=== PATIENT | female | born 1995 | race Caucasian/White ===

== ENCOUNTER 2018-06-16 17:39 | Emergency (ER) | payer OTHER ==
[2018-06-16 17:52] VITALS: BP 134/86; PULSE 86; TEMP 98.1; BMI 23.3
--- NOTE | 2018-06-16 17:53 | PDOC ---
Rapid Medical Evaluation Time Seen by Provider: 06/16/18 17:48 Medical Evaluation: Allergies Allergy/AdvReac Type Severity Reaction Status Date / Time No Known Allergies Allergy Verified 12/30/14 00:28 06/16/18 17:49 I have performed a brief in-person evaluation of this patient. The patient presents with a chief complaint of:headache s/p fall this am at 8am. No dizziness, n/v. No pmhx, not on blood thinners Pertinent physical exam findings:well chace and stable w/ unremarkable I have ordered the following:nothing The patient will proceed to the ED for further evaluation Discharge Disposition - Diagnosis Head injury Qualifiers: Encounter type: initial encounter Qualified Code(s): S09.90XA - Unspecified injury of head, initial encounter - Referrals - Patient Instructions - Post Discharge Activity
--- NOTE | 2018-06-16 18:33 | PDOC ---
History of Present Illness - General History Source: Patient Exam Limitations: No Limitations - History of Present Illness Initial Comments: 06/16/18 18:33 23 yr female with c/o headache after fall hit back of head this am . no LOC felt dizzy after fall. Pt has had continued headache despite taking tylenol . 06/16/18 19:29 Occurred: reports: this morning Severity: reports: mild Pain Location: reports: head Method of Injury: Yes: fall Modifying Factors: improves with: None Loss of Consciousness: no loss of consciousness Associated Symptoms (Fall): headache <Geovanna Joy - Last Filed: 06/16/18 19:29> <River Byrd - Last Filed: 06/16/18 21:48> - General Chief Complaint: Injury Stated Complaint: Headache FROM FALL Time Seen by Provider: 06/16/18 17:48 Past History - Past Medical History Asthma: No Cancer: No Cardiac Disorders: No COPD: No CHF: No Diabetes: No HTN: No Seizures: No Thyroid Disease: No - Surgical History Gastric Stapling: No Neurologic Surgery: No - Immunization History Immunization Up to Date: No - Suicide/Smoking/Psychosocial Hx Smoking History: Never smoked Have you smoked in the past 12 months: No Information on smoking cessation initiated: No Hx Alcohol Use: No Drug/Substance Use Hx: No Substance Use Type: None Hx Substance Use Treatment: No <Geovanna Joy - Last Filed: 06/16/18 19:29> <River Byrd - Last Filed: 06/16/18 21:48> - Past Medical History Allergies/Adverse Reactions: Allergies Allergy/AdvReac Type Severity Reaction Status Date / Time No Known Allergies Allergy Verified 12/30/14 00:28 Home Medications: Ambulatory Orders NK [No Known Home Medication] 09/02/14 Trauma Specific PMHX - Complaint Specific PMHX Arthritis: No Back Injury: No Neck Injury: No Hx Sacro Iliac Joint Dysfunction: No <Geovanna Joy - Last Filed: 06/16/18 19:29> Review of Systems - Review of Systems Able to Perform ROS?: Yes Is the patient limited [place] proficient: No Constitutional: No: Symptoms Reported HEENTM: No: Symptoms Reported Respiratory: No: Symptoms reported Cardiac (ROS): No: Symptoms Reported ABD/GI: No: Symptoms Reported : No: Symptoms Reported Musculoskeletal: No: Symptoms Reported Integumentary: No: Symptoms Reported Neurological: Yes: Symptoms reported, Headache <Geovanna Joy - Last Filed: 06/16/18 19:29> *Physical Exam - Vital Signs Last Vital Signs Temp Pulse Resp BP Pulse Ox 98.1 F 86 18 134/86 100 06/16/18 17:48 06/16/18 17:48 06/16/18 17:48 06/16/18 17:48 06/16/18 17:48 - Physical Exam General Appearance: Yes: Nourished, Appropriately Dressed HEENT: positive: EOMI, [place], Normal ENT Inspection, TMs Normal, Pharynx Normal Neck: positive: Supple. negative: Tender, Tender lateral, Tender midline Respiratory/Chest: positive: Lungs Clear, Normal Breath Sounds. negative: Chest Tender Cardiovascular: positive: Regular Rhythm, Regular Rate Musculoskeletal: positive: Normal Inspection. negative: Vertebral Tenderness Extremity: positive: Normal Capillary Refill, Normal Inspection, Normal Range of Motion. negative: Tender Integumentary: positive: Normal Color, Dry, Warm Neurologic: positive: Fully Oriented, Alert, Normal Mood/Affect, Normal Response , Motor Strength 5/5 <Geovanna Joy - Last Filed: 06/16/18 19:29> - Vital Signs Last Vital Signs Temp Pulse Resp BP Pulse Ox 98.1 F 86 18 134/86 100 06/16/18 17:48 06/16/18 17:48 06/16/18 17:48 06/16/18 17:48 06/16/18 17:48 <River Byrd - Last Filed: 06/16/18 21:48> Moderate Sedation - Procedure Monitoring Vital Signs: Procedure Monitoring Vital Signs Temperature 98.1 F 06/16/18 17:48 Pulse Rate 86 06/16/18 17:48 Respiratory Rate 18 06/16/18 17:48 Blood Pressure 134/86 06/16/18 17:48 O2 Sat by Pulse Oximetry (%) 100 06/16/18 17:48 <Geovanna Joy - Last Filed: 06/16/18 19:29> - Procedure Monitoring Vital Signs: Procedure Monitoring Vital Signs Temperature 98.1 F 06/16/18 17:48 Pulse Rate 86 06/16/18 17:48 Respiratory Rate 18 06/16/18 17:48 Blood Pressure 134/86 06/16/18 17:48 O2 Sat by Pulse Oximetry (%) 100 06/16/18 17:48 <River Byrd - Last Filed: 06/16/18 21:48> ED Treatment Course - ADDITIONAL ORDERS Additional order review: Laboratory Results 06/16/18 18:30 Urine HCG, Qual Negative - RADIOLOGY Radiology Studies Ordered: Category Date Time Status HEAD CT WITHOUT CONTRAST [CT] Stat CT Scan 06/16/18 20:30 Completed <River Byrd - Last Filed: 06/16/18 21:48> Medical Decision Making - Medical Decision Making 06/16/18 19:30 cc: slipped on ice fell backwards hit back of head x2 on the sidewalk. no LOC felt dizzy after the fall taking tylenol today without relief of the headache pt states she has no neck pain or arm pain, neg photo /phonophobia will get head ct r/o subdural <Geovanna Joy - Last Filed: 06/16/18 19:29> *DC/Admit/Observation/Transfer <Geovanna Joy - Last Filed: 06/16/18 19:29> - Discharge Dispostion Decision to Admit order: No <River Byrd - Last Filed: 06/16/18 21:48> Diagnosis at time of Disposition: Head injury Qualifiers: Encounter type: initial encounter Qualified Code(s): S09.90XA - Unspecified injury of head, initial encounter - Discharge Dispostion Disposition: HOME Condition at time of disposition: Stable - Referrals Referrals: Adam Cherry DO [Staff Physician] - - Patient Instructions Printed Discharge Instructions: DI for Closed Head Injury Additional Instructions: take tylenol 650mg every 4-6hrs for pain or headache avoid reading, texting watching TV for the next 24-48hrs follow with your primary care doctor in 1-2 days return to ER for any worsening symptoms f/u with neurology for further evaluation and treatment options.
== END 2018-06-16 21:52 | disposition home or self-care (01) ==
LOC: JER 17:39 → JERFT 17:39
DX: S00.90XA Unspecified superficial injury of unspecified part of head, initial encounter (principal); W00.0XXA Fall on same level due to ice and snow, initial encounter; Y93.89 Activity, other specified; Y92.89 Other specified places as the place of occurrence of the external cause
CPT/HCPCS: 70450-TC; 84703; 99281-25